=== PATIENT | female | born 1935 | race Caucasian/White ===

== ENCOUNTER 2020-10-25 13:45 | Outpatient (CLI) | payer MEDICARE ==
--- NOTE | 2020-10-25 15:16 | ULT ---
ULTRASOUND RETROPERITONEUM COMPLETE: (RENAL) DATE: 10/25/2020 HISTORY: 85-year-old female with recurrent urinary tract infection FINDINGS: The right kidney measures 9.5 x 4 x 3.5 cm. The left kidney measures 11.5 x 4 x 5 cm. Both kidneys have normal parenchymal echogenicity. There is no hydronephrosis. No moderate sized or large renal cystic or solid renal lesion is identified. Cursory images of the urinary bladder demonstrate no gross abnormality. Prevoid bladder volume: 290 mL. Post void bladder volume: 75 mL IMPRESSION: 1. Normal sonographic appearance of the kidneys. 2. Incomplete micturition: Post void residual of 75 mL
== END 2020-10-25 13:46 | disposition home or self-care (01) ==
LOC: BICULT 13:45
PROVIDERS: ATTEND Urology
DX: N39.0 Urinary tract infection, site not specified (principal); R39.14 Feeling of incomplete bladder emptying
CPT/HCPCS: 76770

== ENCOUNTER 2021-03-24 13:08 | Inpatient (IN) | payer MEDICARE ==
[2021-03-24 14:50] LABS: #Basophils 0.1 thou/uL (0.0-0.2); #Eosinphils 0.1 thou/uL (0.0-0.7); #Lymphocytes 1.2 thou/uL (1.20-3.40); #Monocytes 1.1 thou/uL (0.11-0.59); #Neutrophils 13.5 thou/uL (1.40-6.50); %Basophils 0.4 % (0.0-1.0); %Eosinophils 0.4 % (0.0-10.0); %Lymphocytes 7.7 % (21.0-51.0); %Monocytes 6.6 % (0.0-10.0); %Neutrophils 84.8 % (42.0-75.0); Mean Corpuscular HGB CONC 32.4 g/dL (32.0-36.0); Mean Corpuscular Hemoglobin 30.6 pg (27.0-31.0); Mean Corpuscular Volume 94.2 fL (78.0-98.0); Mean Platelet Volume 7.4 fL (7.4-10.4); Platelet Count 360 thou/uL (130-400); RBC Distribution Width 12.6 % (11.5-14.5); Red Blood Cell (RBC) Count 4.58 mill/uL (4.20-5.40)
[2021-03-24 15:09] LABS: ALT (SGPT) 12 U/L (8-55); AST (SGOT) 37 U/L (5-34); Albumin 3.2 g/dL (3.4-4.8); Alkaline Phosphatase 309 U/L (40-110); Anion Gap 14 mmol/L (10-20); BUN (Urea Nitrogen) 9 mg/dL (9.8-20.1); Bilirubin, Total 0.6 mg/dL (0.2-1.2); Calc. Creatinine Clearance 0 mL/min (70-130); Calcium 8.9 mg/dL (7.8-10.44); Carbon Dioxide 27 mmol/L (23-31); Chloride 95 mmol/L (98-107); Globulin 3.9 g/dL (2.4-3.5); Glucose 121 mg/dL (83-110); Lipase 19 U/L (8-78); Potassium 3.7 mmol/L (3.5-5.1); Protein, Total 7.1 g/dL (5.8-8.1); Sodium 132 mmol/L (136-145)
[2021-03-24 16:31] LABS: Bilirubin Negative (Negative); Blood, Urine Trace (Negative); Glucose, Urine (Dipstick) Negative (Negative); Ketone, Urine Negative (Negative); Leukocyte Large (Negative); Nitrite Negative (Negative); Protein, Urine (Dipstick) Negative (Neg-Trace); Urobilinogen 0.2 mg/dL (Less than 2)
[2021-03-24 16:37] LABS: Bacteria/HPF 4+ HPF (None Seen); RBC/HPF 0-3 HPF (0-3); Squamous Epithelial 0-3 HPF (0-3); WBC/HPF Greater than 50 HPF (0-3)
[2021-03-24 16:39] LABS: Clarity Clear (Clear); Specific Gravity, Urine 1.006 (1.002-1.036)
[2021-03-24] MEDS ORDERED: Electrolyte Replacement Protocol FS SCH (18:00)
[2021-03-24 18:54] LABS: Magnesium 1.9 mg/dL (1.6-2.6); Phosphorus 2.6 mg/dL (2.3-4.7)
[2021-03-24] MEDS ORDERED: Ondansetron ODT 4 MG TAB SL PRN (20:30)
[2021-03-24] MEDS ORDERED: Acetaminophen 325 MG TAB PO PRN (20:30)
[2021-03-24] MEDS ORDERED: Ondansetron PF 4 MG/2 ML Vial IVP PRN (20:30)
[2021-03-25 00:54] LABS: SARS-CoV-2 NAA Rapid Test Not Detected (NotDetected)
[2021-03-25] MEDS: cefTRIAXone\\ROCEPHIN 1 GM in Sodium Chloride 0.9% 100 ML IVPB SCH (03:11)
[2021-03-25] MEDS ORDERED: Magnesium 2 GM/50 ML 2 GM in Premix Bag 1 BAG IVPB SCH (05:45)
[2021-03-25 18:28] LABS: #Eosinphils 0.1 thou/uL (0.0-0.7); #Lymphocytes 1.2 thou/uL (1.20-3.40); #Monocytes 0.9 thou/uL (0.11-0.59); #Neutrophils 11.6 thou/uL (1.40-6.50); %Basophils 0.3 % (0.0-1.0); %Eosinophils 0.4 % (0.0-10.0); %Lymphocytes 8.8 % (21.0-51.0); %Monocytes 6.4 % (0.0-10.0); Hemoglobin 12.9 g/dL (12.0-16.0); Mean Corpuscular HGB CONC 33.5 g/dL (32.0-36.0); Mean Corpuscular Hemoglobin 31.2 pg (27.0-31.0); Mean Corpuscular Volume 93.4 fL (78.0-98.0); Mean Platelet Volume 7.2 fL (7.4-10.4); Platelet Count 314 thou/uL (130-400); RBC Distribution Width 12.5 % (11.5-14.5); Red Blood Cell (RBC) Count 4.13 mill/uL (4.20-5.40); White Blood Cell (WBC) Count 13.8 thou/uL (4.8-10.8)
[2021-03-25] MEDS ORDERED: Metoprolol Tartrate 5 MG/5 ML VIAL IVP PRN (19:35)
[2021-03-25] MEDS: Pregabalin 75 MG CAP PO SCH (19:42)
[2021-03-25] MEDS: Apixaban 5 MG TAB PO SCH (19:43)
[2021-03-25] MEDS: Acetaminophen 325 MG TAB PO PRN (19:43)
[2021-03-25] MEDS ORDERED: Ondansetron PF 4 MG/2 ML Vial IVP PRN (20:53)
[2021-03-26] MEDS: cefTRIAXone\\ROCEPHIN 1 GM in Sodium Chloride 0.9% 100 ML IVPB SCH (02:35)
[2021-03-26 04:54] LABS: #Basophils 0.1 thou/uL (0.0-0.2); #Eosinphils 0.1 thou/uL (0.0-0.7); #Lymphocytes 1.4 thou/uL (1.20-3.40); #Monocytes 0.7 thou/uL (0.11-0.59); #Neutrophils 10.3 thou/uL (1.40-6.50); %Basophils 0.4 % (0.0-1.0); %Eosinophils 0.5 % (0.0-10.0); %Monocytes 5.6 % (0.0-10.0); %Neutrophils 82.4 % (42.0-75.0); Hemoglobin 12.8 g/dL (12.0-16.0); Mean Corpuscular HGB CONC 32.9 g/dL (32.0-36.0); Mean Corpuscular Hemoglobin 30.8 pg (27.0-31.0); Mean Corpuscular Volume 93.5 fL (78.0-98.0); Mean Platelet Volume 7.4 fL (7.4-10.4); Platelet Count 298 thou/uL (130-400); RBC Distribution Width 12.6 % (11.5-14.5); Red Blood Cell (RBC) Count 4.17 mill/uL (4.20-5.40); White Blood Cell (WBC) Count 12.5 thou/uL (4.8-10.8)
[2021-03-26 05:17] LABS: Anion Gap 13 mmol/L (10-20); BUN (Urea Nitrogen) 7 mg/dL (9.8-20.1); Calc. Creatinine Clearance 71 mL/min (70-130); Calcium 8.5 mg/dL (7.8-10.44); Carbon Dioxide 27 mmol/L (23-31); Chloride 104 mmol/L (98-107); Glucose 120 mg/dL (83-110); Potassium 3.5 mmol/L (3.5-5.1); Sodium 140 mmol/L (136-145)
[2021-03-26] MEDS ORDERED: Magnesium 2 GM/50 ML 2 GM in Premix Bag 1 BAG IVPB SCH (06:15)
[2021-03-26] MEDS ORDERED: Potassium Chloride 20 MEQ TAB PO SCH ×2 (06:15→09:00)
[2021-03-26] MEDS: Apixaban 5 MG TAB PO SCH ×2 (08:22→21:29)
[2021-03-26] MEDS: Estradiol 1 MG TAB PO SCH (08:22)
[2021-03-26] MEDS: Acetaminophen 325 MG TAB PO PRN (15:57)
[2021-03-26] MEDS: Pregabalin 75 MG CAP PO SCH (21:29)
[2021-03-27] MEDS: cefTRIAXone\\ROCEPHIN 1 GM in Sodium Chloride 0.9% 100 ML IVPB SCH (02:27)
[2021-03-27 05:27] LABS: #Eosinphils 0.1 thou/uL (0.0-0.7); #Lymphocytes 1.2 thou/uL (1.20-3.40); #Monocytes 0.9 thou/uL (0.11-0.59); #Neutrophils 10.7 thou/uL (1.40-6.50); %Basophils 0.2 % (0.0-1.0); %Eosinophils 0.9 % (0.0-10.0); %Lymphocytes 8.9 % (21.0-51.0); Hemoglobin 12.8 g/dL (12.0-16.0); Mean Corpuscular HGB CONC 31.4 g/dL (32.0-36.0); Mean Corpuscular Hemoglobin 29.4 pg (27.0-31.0); Mean Corpuscular Volume 93.6 fL (78.0-98.0); Mean Platelet Volume 7.5 fL (7.4-10.4); Platelet Count 315 thou/uL (130-400); RBC Distribution Width 12.8 % (11.5-14.5); Red Blood Cell (RBC) Count 4.37 mill/uL (4.20-5.40); White Blood Cell (WBC) Count 12.9 thou/uL (4.8-10.8)
[2021-03-27] MEDS: Estradiol 1 MG TAB PO SCH (08:23)
[2021-03-27] MEDS: Apixaban 5 MG TAB PO SCH ×2 (08:23→20:59)
[2021-03-27] MEDS: Acetaminophen 325 MG TAB PO PRN ×2 (08:23→21:00)
[2021-03-27] MEDS: Pregabalin 75 MG CAP PO SCH (20:59)
[2021-03-27] MEDS: Non-Formulary Item 1 EACH (L.Acidoph,Paracasei, B.Lactis [Probiotic] 1 EACH Capsule) PO SCH ×2 (22:05→22:48)
[2021-03-28] MEDS: cefTRIAXone\\ROCEPHIN 1 GM in Sodium Chloride 0.9% 100 ML IVPB SCH (03:08)
[2021-03-28] MEDS: Estradiol 1 MG TAB PO SCH (08:22)
[2021-03-28] MEDS: Apixaban 5 MG TAB PO SCH ×2 (08:22→20:37)
[2021-03-28] MEDS ORDERED: Metoprolol Tartrate 25 MG TAB PO SCH (09:00)
[2021-03-28 09:09] VITALS: BMI 25.9
[2021-03-28] MEDS: Acetaminophen 325 MG TAB PO PRN ×2 (11:44→20:38)
[2021-03-28] MEDS: Lidocaine 5% Patch TD SCH (11:45)
[2021-03-28] MEDS: Pregabalin 75 MG CAP PO SCH (20:38)
[2021-03-28] MEDS: Metoprolol Tartrate 25 MG TAB PO SCH (20:38)
[2021-03-28] MEDS: Transdermal Patch Removal TOP SCH (23:15)
[2021-03-29] MEDS: Apixaban 5 MG TAB PO SCH ×2 (08:39→20:55)
[2021-03-29] MEDS: Metoprolol Tartrate 25 MG TAB PO SCH ×2 (08:39→20:55)
[2021-03-29] MEDS: Estradiol 1 MG TAB PO SCH (08:39)
[2021-03-29] MEDS: Cefdinir 300 MG CAP PO SCH ×2 (08:39→20:55)
[2021-03-29] MEDS: Lidocaine 5% Patch TD SCH (11:28)
[2021-03-29] MEDS: Acetaminophen 325 MG TAB PO PRN (19:54)
[2021-03-29] MEDS: Pregabalin 75 MG CAP PO SCH (19:56)
[2021-03-30] MEDS: traMADol HCl 50 MG TAB PO PRN ×3 (00:25→21:02)
[2021-03-30] MEDS: Transdermal Patch Removal TOP SCH (00:26)
[2021-03-30 04:47] LABS: #Basophils 0.1 thou/uL (0.0-0.2); #Eosinphils 0.1 thou/uL (0.0-0.7); #Lymphocytes 1.6 thou/uL (1.20-3.40); #Monocytes 0.7 thou/uL (0.11-0.59); #Neutrophils 8.1 thou/uL (1.40-6.50); %Basophils 0.5 % (0.0-1.0); %Eosinophils 1.4 % (0.0-10.0); %Lymphocytes 15.1 % (21.0-51.0); %Monocytes 6.5 % (0.0-10.0); %Neutrophils 76.5 % (42.0-75.0); Hemoglobin 12.4 g/dL (12.0-16.0); Mean Corpuscular HGB CONC 33.3 g/dL (32.0-36.0); Mean Corpuscular Hemoglobin 31.3 pg (27.0-31.0); Mean Corpuscular Volume 93.9 fL (78.0-98.0); Mean Platelet Volume 7.2 fL (7.4-10.4); Platelet Count 321 thou/uL (130-400); RBC Distribution Width 12.7 % (11.5-14.5); Red Blood Cell (RBC) Count 3.97 mill/uL (4.20-5.40); White Blood Cell (WBC) Count 10.6 thou/uL (4.8-10.8)
[2021-03-30 05:15] LABS: ALT (SGPT) 9 U/L (8-55); AST (SGOT) 19 U/L (5-34); Albumin 2.5 g/dL (3.4-4.8); Alkaline Phosphatase 242 U/L (40-110); Anion Gap 9 mmol/L (10-20); BUN (Urea Nitrogen) 7 mg/dL (9.8-20.1); Bilirubin, Total 0.4 mg/dL (0.2-1.2); Calc. Creatinine Clearance 63 mL/min (70-130); Calcium 8.5 mg/dL (7.8-10.44); Carbon Dioxide 28 mmol/L (23-31); Chloride 104 mmol/L (98-107); Globulin 3.3 g/dL (2.4-3.5); Glucose 102 mg/dL (83-110); Potassium 3.5 mmol/L (3.5-5.1); Protein, Total 5.8 g/dL (5.8-8.1); Sodium 137 mmol/L (136-145)
[2021-03-30] MEDS ORDERED: Potassium Chloride 20 MEQ TAB PO SCH (06:30)
[2021-03-30] MEDS ORDERED: Electrolyte Replacement Protocol FS PRN (06:30)
[2021-03-30] MEDS: Estradiol 1 MG TAB PO SCH (09:41)
[2021-03-30] MEDS: Montelukast Sodium 10 mg Tablet PO SCH (09:41)
[2021-03-30] MEDS: Apixaban 5 MG TAB PO SCH ×2 (09:41→21:03)
[2021-03-30] MEDS: Metoprolol Tartrate 25 MG TAB PO SCH ×2 (09:41→21:03)
[2021-03-30] MEDS: Cefdinir 300 MG CAP PO SCH ×2 (09:41→21:03)
[2021-03-30] MEDS: Lidocaine 5% Patch TD SCH (12:58)
[2021-03-30] MEDS ORDERED: Digoxin 0.125 MG TAB PO SCH (15:15)
[2021-03-30] MEDS: Pregabalin 75 MG CAP PO SCH (21:03)
[2021-03-31] MEDS: Transdermal Patch Removal TOP SCH (01:22)
[2021-03-31] MEDS ORDERED: Magnesium 2 GM/50 ML 2 GM in Premix Bag 1 BAG IVPB SCH (06:15)
[2021-03-31] MEDS: Metoprolol Tartrate 25 MG TAB PO SCH (08:45)
[2021-03-31] MEDS: Cefdinir 300 MG CAP PO SCH (08:45)
[2021-03-31] MEDS: Apixaban 5 MG TAB PO SCH (08:45)
[2021-03-31] MEDS: Montelukast Sodium 10 mg Tablet PO SCH (08:45)
[2021-03-31] MEDS: Estradiol 1 MG TAB PO SCH (08:45)
[2021-03-31] MEDS: Lidocaine 5% Patch TD SCH (08:48)
[2021-03-31] MEDS ORDERED: Digoxin 0.125 MG TAB PO SCH (09:00)
[2021-03-31 16:50] VITALS: BP 130/64; TEMP 98.8
[2021-03-31] MEDS: traMADol HCl 50 MG TAB PO PRN (16:52)
== END 2021-03-31 17:30 | disposition home health service (06) | DRG 872 ==
LOC: ERS 13:08 → 2NO 18:18
PROVIDERS: ADMIT Internal Medicine; ATTEND Family Medicine
DX: A41.9 Sepsis, unspecified organism (principal); B02.29 Other postherpetic nervous system involvement; E44.0 Moderate protein-calorie malnutrition; N30.00 Acute cystitis without hematuria; I48.20 Chronic atrial fibrillation, unspecified; Z20.822 Contact with and (suspected) exposure to COVID-19; K22.70 Barrett's esophagus without dysplasia; K44.9 Diaphragmatic hernia without obstruction or gangrene; N32.81 Overactive bladder; R62.7 Adult failure to thrive; I50.9 Heart failure, unspecified; J84.10 Pulmonary fibrosis, unspecified; G30.9 Alzheimer's disease, unspecified; F02.80 Dementia in other diseases classified elsewhere, unspecified severity, without behavioral disturbance, psychotic disturbance, mood disturbance, and anxiety; Z90.49 Acquired absence of other specified parts of digestive tract; Z90.710 Acquired absence of both cervix and uterus; Z90.13 Acquired absence of bilateral breasts and nipples; Z88.1 Allergy status to other antibiotic agents; Z68.24 Body mass index [BMI] 24.0-24.9, adult; Z86.73 Personal history of transient ischemic attack (TIA), and cerebral infarction without residual deficits; Z87.440 Personal history of urinary (tract) infections
CPT/HCPCS: 36415; 36416; 71045; 76705; 80048; 80053; 81003; 81015; 82550; 83605; 83690; 83735; 83880; 84100; 84443; 84484; 85025; 87040; 87086; 93005; 93010; 93306; 96365; J0690; J0696; J3475; J3490; U0002; U0005

== ENCOUNTER 2021-04-16 21:50 | Emergency (ER) | payer MEDICARE | END 2021-04-16 22:18 | disposition left against medical advice (07) | LOC: ERS 21:50 | DX: Z53.21 Procedure and treatment not carried out due to patient leaving prior to being seen by health care provider (principal) ==